=== PATIENT | female | born 1935 | race Asian ===

== ENCOUNTER 2019-01-18 05:54 | Inpatient (IN) | payer MEDICARE ==
[~2019-01-18] VITALS: Ht 157.5 cm; Wt 64.2 kg
[2019-01-18] MEDS ORDERED: SODIUM CHLORIDE FLUSH 10ML SYR IVF ONE (06:30)
[2019-01-18] MEDS ORDERED: SODIUM CHLORIDE 0.9% 1,000ML IVBOLUS ONE (06:30)
--- NOTE | 2019-01-18 06:55 | NUR ---
PT RESTING IN BED, PT IN HOSPITAL GOWN. IV IN AND ORDERED FLUIDS INFUSING. LABS HAVE BEEN DRAWN. REPORT TO JOSSELIN KEANE.
--- NOTE | 2019-01-18 07:00 | NUR ---
BEDSIDE REPORT FROM DANIELA KEANE PATIENT RESTING COMFORTABLY IN BED ON RADIO FREQUENCY ENGINEER IVF INFUSING UPDATED ON POC
[2019-01-18] MEDS ORDERED: MECLIZINE CHEWABLE 25 MG TAB PO ONE (07:30)
--- NOTE | 2019-01-18 07:41 | NUR ---
PATIENT UP TO RESTROOM TO VOID -MISSED HAT WHILE VOIDING (UNABLE TO OBTAINE URINE SPECIMEN) INITIALLY REPORTED SHE FELT BETTER STANDING UP; THEN DIZZINESS (ROOM SPINNING RETURNED WITHIN MOMENTS. VITAL UNREMARKABLE PROVIDER MADE AWARE- TO PERFORM CT SCAN/ADMIN [facility] MEDIC[facility]
[2019-01-18 07:43] LABS: BASOPHILS # (AUTO) 0.07 x10^3/uL (0-0.1); BASOPHILS % (AUTO) 1 % (0-1); EOSINOPHILS # (AUTO) 0.12 x10^3/uL (0-0.4); EOSINOPHILS % (AUTO) 1 % (1-7); LYMPHOCYTES # (AUTO) 2.01 x10^3/uL (1-3.4); LYMPHOCYTES % (AUTO) 18 % (22-44); MD NO; MEAN CORPUSCULAR HEMOGLOBIN 29.3 pg (27.0-34.8); MEAN CORPUSCULAR HGB CONC 31.3 g/dL (32.4-35.8); MEAN CORPUSCULAR VOLUME 93.6 fL (80-100); MEAN PLATELET VOLUME 8.8 fL (7.4-10.4); MONOCYTES # (AUTO) 0.46 x10^3/uL (0.2-0.8); MONOCYTES % (AUTO) 4 % (2-9); NEUTROPHILS # (AUTO) 8.29 x10^3/uL (1.8-6.8); NEUTROPHILS % (AUTO) 76 % (42-75); PLATELET COUNT 329 x10^3/uL (130-400); RED BLOOD COUNT 5.07 x10^6/uL (3.82-5.3); RED CELL DISTRIBUTION WIDTH 15.6 % (9.6-15.2)
--- NOTE | 2019-01-18 07:45 | NUR ---
PATIENT TO CT SCAN. TO MEDICATE ONCE SHE RETURNS
[2019-01-18 07:47] LABS: ALANINE AMINOTRANSFERASE 16 U/L (12-78); ALBUMIN 3.9 g/dL (3.4-5.0); ANION GAP 7 mmol/L (5-15); CALCIUM 8.9 mg/dL (8.5-10.1); CHLORIDE 112 mmol/L (98-107); CREATININE 0.89 mg/dL (0.55-1.02)
[2019-01-18] MEDS ORDERED: MECLIZINE CHEWABLE 25 MG TAB ONE (07:48)
[2019-01-18 07:52] LABS: ALKALINE PHOSPHATASE 107 U/L (45-117); BILIRUBIN,TOTAL 0.3 mg/dL (0.2-1.0); TOTAL PROTEIN 7.8 g/dL (6.4-8.2); TROPONIN I < 0.015 ng/mL (0.000-0.045)
--- NOTE | 2019-01-18 08:32 | NUR ---
UP WALKING MORE. FEELING LESS DIZZY. URINE OBTAINED-SENT TO LAB PROVIDER MADE AWARE OF IMPROVEMENT-PLAN TO DISCHARGE
[2019-01-18 08:57] LABS: MICROSCOPIC AUTO
--- NOTE | 2019-01-18 09:49 | NUR ---
HELPED UP TO RESTROOM AGAIN. PATIENT HAS VOIDED 4 TIMES SINCE ARRIVAL NO UNABLE TO AMBULATE (DIZZY AT 10/10). PROVIDER MADE AWARE VITALS WNL UPDATED ON POC EATING SALTINES/DRINKING WATER
--- NOTE | 2019-01-18 10:57 | NUR ---
Provided with cane. then road tested. patient amble to ambulate w/ slightly more confidence. However, remains dizzy at 8/10. As patient has no family/friends locally or at home in [place]-patient unsafe to be discharged- Provider made aware
[2019-01-18] MEDS ORDERED: CEFTRIAXONE PMX 1GM/50ML 50 ML IVPB ONE (11:30)
[2019-01-18] MEDS ORDERED: GLIP10TA13 PO (11:39)
[2019-01-18] MEDS ORDERED: LISI40TA PO (11:39)
[2019-01-18] MEDS ORDERED: EZET1TAB58 PO (11:39)
[2019-01-18] MEDS ORDERED: GEMF600T8 PO (11:39)
[2019-01-18] MEDS ORDERED: ALLO100T30 PO (11:39)
--- NOTE | 2019-01-18 11:44 | NUR ---
WITH RE-ASSESSMENT PATIENT REPORTS CONTINUED DIZZINESS/ AND NOW BLADDER DISCOMFORT AT 11/22-DEFERRING MEDICATION VITALS UPDATED WNL MED RECC UPDATED NEW PIV PLACED PROVIDER WITH ADDITIONAL GLENROY/FLUIDS UPDATE DON POC
[2019-01-18] MEDS ORDERED: SODIUM CHLORIDE FLUSH 10ML SYR IVF PRN (12:00)
--- NOTE | 2019-01-18 13:49 | NUR ---
TASK RN: PT STATES "I FEEL THE MEDICINE IS WORKING. I'M NOT GROGGY IN MY HEAD." NO ACUTE DISTRESS NOTED. VSS. AWAITING ROOM ASSIGNMENT TO FLOOR. NO NEEDS REQUESTED AT THIS TIME.
--- NOTE | 2019-01-18 14:54 | NUR ---
ATE ENTIRE LUNCH CONTINUES TO REPORT IMPROVEMENT IN PAIN/NAUSEA "IM ABOUT A 2/10 ON BOTH" VITAL STABLE ON MNITOR CALL [facility] IN HAND/SIDE RAILS UP UPDATED ON PENDING TRANSFER TO FLOOR
[2019-01-18 15:36] VITALS: BP 157/71
[2019-01-18] MEDS: SODIUM CHLORIDE 0.9% 1,000 ML IV SCH (15:44)
[2019-01-18] MEDS ORDERED: ONDANSETRON 2MG/ML, 2ML IVPush PRN (16:00)
[2019-01-18] MEDS ORDERED: PROMETHAZINE 25 MG/ML, 1ML IM PRN (16:00)
[2019-01-18] MEDS ORDERED: OXYcodone/APAP 5/325MG TABLET PO PRN (16:00)
[2019-01-18] MEDS ORDERED: ONDANSETRON ODT 4 MG PO PRN (16:00)
[2019-01-18] MEDS ORDERED: MECLIZINE 25 MG TABLET PO PRN (16:00)
[2019-01-18] MEDS ORDERED: OXYcodone IR 5MG TABLET PO PRN (16:00)
[2019-01-18] MEDS ORDERED: ACETAMINOPHEN 325 MG TABLET PO PRN (16:00)
[2019-01-18] MEDS ORDERED: CEFTRIAXONE PMX 1GM/50ML 50 ML IV ONE (16:00)
[2019-01-18] MEDS ORDERED: morphine SULFATE 10 MG/ML, 1ML IVPush PRN (16:00)
[2019-01-18] MEDS ORDERED: hydrALAzine 20 MG/ML, 1ML IVPush PRN (16:00)
[2019-01-18] MEDS ORDERED: BISACODYL 10 MG SUPP PR PRN (16:00)
[2019-01-18] MEDS ORDERED: DOCUSATE 100 MG CAPSULE PO PRN (16:00)
[2019-01-18] MEDS ORDERED: POLYETHYLENE GLYCOL 17 GM PACKET PO PRN (16:00)
[2019-01-18] MEDS: HEPARIN 5,000 UNITS/ML, 1ML SQ SCH (16:00)
[2019-01-18 16:59] LABS: FREE T4 (FREE THYROXINE) 1.13 ng/dL (0.76-1.46); THYROID STIMULATING HORMONE 0.42 mIU/L (0.358-3.740)
[2019-01-18 17:24] LABS: HEMOGLOBIN A1C 7.5 % (4.2-6.3)
[2019-01-18 19:58] VITALS: BP 152/68
[2019-01-18] MEDS ORDERED: GEMFIBROZIL 600 MG TABLET PO SCH (21:00)
[2019-01-18] MEDS: GEMFIBROZIL 600 MG TABLET PO SCH (21:00)
[2019-01-19 01:32] VITALS: BP 146/63
[2019-01-19] MEDS: SODIUM CHLORIDE 0.9% 1,000 ML IV SCH ×2 (01:35→09:55)
[2019-01-19 05:40] LABS: BASOPHILS # (AUTO) 0.04 x10^3/uL (0-0.1); BASOPHILS % (AUTO) 1 % (0-1); EOSINOPHILS % (AUTO) 2 % (1-7); LYMPHOCYTES # (AUTO) 2.76 x10^3/uL (1-3.4); LYMPHOCYTES % (AUTO) 28 % (22-44); MD NO; MEAN CORPUSCULAR HEMOGLOBIN 30.7 pg (27.0-34.8); MEAN CORPUSCULAR HGB CONC 32.4 g/dL (32.4-35.8); MEAN CORPUSCULAR VOLUME 94.8 fL (80-100); MEAN PLATELET VOLUME 8.2 fL (7.4-10.4); MONOCYTES # (AUTO) 0.56 x10^3/uL (0.2-0.8); MONOCYTES % (AUTO) 6 % (2-9); NEUTROPHILS # (AUTO) 6.28 x10^3/uL (1.8-6.8); NEUTROPHILS % (AUTO) 64 % (42-75); PLATELET COUNT 296 x10^3/uL (130-400); RED BLOOD COUNT 4.57 x10^6/uL (3.82-5.3); RED CELL DISTRIBUTION WIDTH 15.3 % (9.6-15.2)
[2019-01-19 05:50] LABS: CHLORIDE 115 mmol/L (98-107)
[2019-01-19 06:01] LABS: ALANINE AMINOTRANSFERASE 13 U/L (12-78); ALBUMIN 3.3 g/dL (3.4-5.0); ALKALINE PHOSPHATASE 89 U/L (45-117); ANION GAP 10 mmol/L (5-15); BILIRUBIN,TOTAL 0.2 mg/dL (0.2-1.0); CHOLESTEROL, TOTAL 163 mg/dL (140-239); CREATININE 0.88 mg/dL (0.55-1.02); HDL CHOL % 33 % (28-40); HDL CHOLESTEROL (DIRECT) 54 mg/dL (40-60); LDL CHOLESTEROL,CALCULATED 78 mg/dL (54-169); LDL/HDL RATIO 1.4 (0.5-3.0); TOTAL PROTEIN 6.7 g/dL (6.4-8.2); TRIGLYCERIDES 154 mg/dL (50-200); VLDL CHOLESTEROL 31 mg/dL (0-25)
[2019-01-19] MEDS: LISINOPRIL 40 MG TABLET PO SCH (09:00)
[2019-01-19] MEDS: EZETIMIBE 10 MG TABLET PO SCH (09:00)
[2019-01-19] MEDS: ALLOPURINOL 300 MG TABLET PO SCH (09:00)
[2019-01-19] MEDS: GEMFIBROZIL 600 MG TABLET PO SCH ×2 (09:00→20:28)
[2019-01-19] MEDS: SIMVASTATIN 10 MG TABLET PO SCH (09:07)
[2019-01-19 09:08] VITALS: BP 144/80
[2019-01-19] MEDS: HEPARIN 5,000 UNITS/ML, 1ML SQ SCH ×3 (09:08→16:02)
[2019-01-19] MEDS: CEFTRIAXONE PMX 2GM/50ML 50 ML IV SCH (13:10)
[2019-01-19 14:02] VITALS: BP 135/65
[2019-01-19 20:28] VITALS: BP 138/68
[2019-01-20 01:19] VITALS: BP 133/62
[2019-01-20 07:30] VITALS: BP 159/85
[2019-01-20] MEDS: GEMFIBROZIL 600 MG TABLET PO SCH ×2 (08:30→20:15)
[2019-01-20] MEDS: HEPARIN 5,000 UNITS/ML, 1ML SQ SCH ×3 (08:30→16:39)
[2019-01-20] MEDS: EZETIMIBE 10 MG TABLET PO SCH (08:31)
[2019-01-20] MEDS: SIMVASTATIN 10 MG TABLET PO SCH (08:31)
[2019-01-20] MEDS: ALLOPURINOL 300 MG TABLET PO SCH (08:31)
[2019-01-20] MEDS: LISINOPRIL 40 MG TABLET PO SCH (08:31)
[2019-01-20 13:00] VITALS: BP 165/85
[2019-01-20] MEDS: CEFTRIAXONE PMX 2GM/50ML 50 ML IV SCH (13:14)
[2019-01-20 14:33] VITALS: BP 159/77
[2019-01-20 19:40] VITALS: BP 152/74
[2019-01-21 01:14] VITALS: BP 146/67
[2019-01-21 08:00] VITALS: BP 152/75
[2019-01-21] MEDS: HEPARIN 5,000 UNITS/ML, 1ML SQ SCH ×2 (08:00)
[2019-01-21] MEDS ORDERED: MECL25TA4 PO (08:48)
[2019-01-21] MEDS ORDERED: CEFD300C37 PO (08:48)
[2019-01-21] MEDS: EZETIMIBE 10 MG TABLET PO SCH (09:24)
[2019-01-21] MEDS: ALLOPURINOL 300 MG TABLET PO SCH (09:24)
[2019-01-21] MEDS: GEMFIBROZIL 600 MG TABLET PO SCH (09:24)
[2019-01-21] MEDS: LISINOPRIL 40 MG TABLET PO SCH (09:24)
[2019-01-21] MEDS: SIMVASTATIN 10 MG TABLET PO SCH (09:24)
== END 2019-01-21 11:05 | disposition home or self-care (01) | DRG 690 ==
LOC: EDBD 05:54 → ED 07:43 → EDIP 11:32 → 3NE 15:29 → DCLOUNGE 01-21 10:48
PROVIDERS: ADMIT Internal Medicine; ATTEND Internal Medicine
DX: N39.0 Urinary tract infection, site not specified (principal); B96.20 Unspecified Escherichia coli [E. coli] as the cause of diseases classified elsewhere; E11.9 Type 2 diabetes mellitus without complications; E78.1 Pure hyperglyceridemia; E78.5 Hyperlipidemia, unspecified; I10 Essential (primary) hypertension; M1A.9XX0 Chronic gout, unspecified, without tophus (tophi); Z88.0 Allergy status to penicillin; N19 Unspecified kidney failure; Z88.8 Allergy status to other drugs, medicaments and biological substances; Z80.1 Family history of malignant neoplasm of trachea, bronchus and lung; R42 Dizziness and giddiness
CPT/HCPCS: 36415; 70450; 80053; 80061; 81001; 83036; 83735; 84439; 84443; 84484; 85025; 87040; 87077; 87086; 87186; 93005; 93880; 96360; G0378; J0696; J1644; J7030